=== PATIENT | female | born 1990 | race Caucasian/White ===

== ENCOUNTER 2023-04-18 11:55 | Outpatient (OUT) | payer OTHER, SELFPAY ==
[2023-04-18 12:28] LABS: Estimated Average Glucose 117 mg/dL; Glycohemoglobin A1C 5.7 % (4.5-6.2)
[2023-04-18 12:53] LABS: Thyroid Stimulating Hormone 0.762 uIU/mL (0.358-3.740)
[2023-04-18 13:21] LABS: Free T4 0.86 ng/dL (0.76-1.46)
== END 2023-04-18 11:56 | disposition home or self-care (01) ==
LOC: LAB 11:59
PROVIDERS: PCP Nurse Practitioner; Visit Provider Nurse Practitioner
DX: E78.1 Pure hyperglyceridemia (principal); E66.9 Obesity, unspecified
CPT/HCPCS: 36415; 83036; 83525; 84439; 84443

== ENCOUNTER 2023-07-08 20:59 | Outpatient (REF) | payer OTHER, SELFPAY ==
--- OUTSIDE RECORDS SUMMARY | 2023-07-08 21:11 | XMS_ITS | CCD ---
Author Name Unknown Address [address] [place] [address] Organization [facility] Care Team Providers Care Diving Fisher Name Role Phone ELA SHEFFIELDIKH H Admitting Unavailable FAWWAD, JOSEPH H Attending Unavailable ELA SHEFFIELDIKH H Consulting Unavailable AICHHOLZ, OMAIRA DELISA Admitting Unavailable AICHHOLZ, CEMET[employer] WORKERS SUPERVISOR DELISA Attending Unavailable AICHHOLZ, CEMETERY WORKERS SUPERVISOR DELISA Consulting Unavailable Kennedi Watt Primary Care Unavailable AICHHOLZ, DELISA Attending Unavailable Problems Active Problems Problem Classification Problem Date Documented Da te Episodic/Chronic Unclassified (3 sources) CONTACT W/AND (SUSP) EXPOS COVID-19; Translations: [CONTACT W/AND (SUSP) EXPOS COVID-19] Onset: 06-01-2022 Past or Other Problems Problem Classification Problem Date Documented Da te Episodic/Chronic Nonmalignant breast conditions (1 source) Nipple discharge; Translations: [NIPPLE DISCHARGE] Onset: 09-04-2021 Episodic Other screening for suspected conditions (not mental disorders or infectious disease) (4 sources) Encounter for screening for malignant neoplasm of cervix; Translations: [ENC SCREENING MALIG NEOPLASM CERV] Onset: 09-03-2021 Episodic Unclassified (1 source) CONTACT W/AND (SUSP) EXPOS COVID-19; Translations: [CONTACT W/AND (SUSP) EXPOS COVID-19] Onset: 05-30-2022 Results Test Name Value Interpretation Reference Range Facility Consent Formson 04-02-2023 Consent Forms [id number] Normal [facility] CMP Standardon 02-26-2023 eGFR Non AA >[address] [facility] Comment on above: Performed By: #### 1 [id number], 9055045, 8631659, 7530010, 0466118, [id number], 5460501 #### [facility] (DEFAULT) [address] [place] [address] 85077 eGFR AA >[address] [facility] Comment on above: Performed By: #### 1 [id number], 4920570, 1348956, 4115081, 7638660, 9145018916, 5277673 #### [facility] (DEFAULT) [address] [place] [address] 82983 Albumin [Mass/Vol] 4.0 g/dL Normal 3.5-5.0 [facility] Comment on above: Performed By: #### 1 [id number], 4770168, 7738115, 3978422, 1896765, 4878735057, 2588127 #### [facility] (DEFAULT) [address] [place] [address] Alk Phos 77 IU/L Normal 32-91 [facility] Comment on above: Performed By: #### 1 [id number], 5241981, 5251377, 1203791, 7354800, 7117564072, 1495115 #### [facility] (DEFAULT) [address] [place] [address] 42892 ALT [Catalytic activity/Vol] 20.0 U/L Normal 14.0-54.0 [facility] Comment on above: Performed By: #### 1 [id number], 7224820, 6056305, 5438597, 7259229, 2297094855, 8925051 #### [facility] (DEFAULT) [address] [place] [address] 72411 AST [Catalytic activity/Vol] 21 U/L Normal 15-41 [facility] Comment on above: Performed By: #### 1 [id number], 1955531, 2250539, 5069921, 5496810, 6930111825, 5706980 #### [facility] (DEFAULT) [address] [place] [address] 95920 Bili Total 0.8 mg/dL Normal 0.3-1.2 [facility] Comment on above: Performed By: #### 1 [id number], 0255077, 6050959, 3336455, 0691514, 8668953474, 4942964 #### [facility] (DEFAULT) [address] [place] [address] 99105 Calcium [Mass/Vol] 9.0 mg/dL Normal 8.9-10.3 [facility] Comment on above: Performed By: #### 1 [id number], 9017390, 1857267, 2563177, 7233663, 3387762667, 4497516 #### [facility] (DEFAULT) [address] [place] [address] 66828 Chloride [Moles/Vol] 103 mmol/L Normal 101-111 [facility] Comment on above: Performed By: #### 1 [id number], 9073673, 7806809, 5825700, 9589914, 9309345075, 3001104 #### [facility] (DEFAULT) [address] [place] [address] 03142 CO2 [Moles/Vol] 25 mmol/L Normal 21-32 [facility] Comment on above: Performed By: #### 1 099487563, 9875450, 2685466, 4514383, 5666305, 6098640994, 5528765 #### [facility] (DEFAULT) [address] [place] [address] 75002 Creatinine [Mass/Vol] 0.76 mg/dL Normal 0.60-1.30 [facility] Comment on above: Performed By: #### 1 [id number], 5960037, 3546815, 4722549, 8300007, 4729588691, 7609320 #### [facility] (DEFAULT) [address] [place] [address] 72597 Glucose [Mass/Vol] 83.0 mg/dL Normal 74.0-118.0 [facility] Comment on above: Performed By: #### 1 [id number], 6509088, 1253930, 5382905, 9751209, 0467320354, 8849921 #### [facility] (DEFAULT) [address] [place] [address] 85705 Potassium [Moles/Vol] 4.1 mmol/L Normal 3.6-5.1 [facility] Comment on above: Performed By: #### 1 200795985, 7783160, 2709827, 6207929, 0285809, 1388757586, 1504490 #### [facility] (DEFAULT) [address] [place] [address] 51088 Protein [Mass/Vol] 7.9 g/dL Normal 6.5-8.1 [facility] Comment on above: Performed By: #### 1 [id number], 5052148, 8691654, 3112328, 1855491, 1083378096, 0783637 #### [facility] (DEFAULT) [address] [place] [address] 40677 Sodium [Moles/Vol] 137.0 mmol/L Normal 136.0-144.0 [facility] Comment on above: Performed By: #### 1 215688363, 4905017, 3662846, 3004903, 5936308, 7596096562, 6668792 #### [facility] (DEFAULT) [address] [place] [address] 01292 Urea nitrogen [Mass/Vol] 13 mg/dL Normal 8-26 [facility] Comment on above: Performed By: #### 1 023797549, 3965949, 3861830, 2311219, 6271192, 1600653774, 3370676 #### [facility] (DEFAULT) [address] [place] [address] 17851 Albumin/Globulin [Mass ratio] 1.0 {ratio} Low 1.4-2.6 [facility] Comment on above: Performed By: #### 1 859750291, 2189300, 6133150, 7000868, 6220453, 4903570058, 8308052 #### [facility] (DEFAULT) [address] [place] [address] 67982 Anion gap [Moles/Vol] 13.1 mmol/L Normal 5.0-19.0 [facility] Comment on above: Performed By: #### 1 [id number], 9846240, 2531424, 3921555, 6810080, 0231691869, 1112522 #### [facility] (DEFAULT) [address] [place] [address] Globulin (S) [Mass/Vol] 3.9 g/dL Normal 1.5-4.3 [facility] Comment on above: Performed By: #### 1 581822179, 6480052, 0475558, 8634735, 2232277, 5344959870, 1412008 #### [facility] (DEFAULT) [address] [place] [address] Osmolality 273 mOsm/L Invalid Interpretation Code [facility] Comment on above: Performed By: #### 1 [id number], 3212950, 8815115, 0103476, 7947994, 8852284822, 8179317 #### [facility] (DEFAULT) [address] [place] [address] Urea nitrogen/Creatinine [Mass ratio] 17.1 mg/mg High 4.6-16.2 [facility] Comment on above: Performed By: #### 1 129838706, 0193337, 1850358, 8918138, 5249456, 4565419689, 2239575 #### [facility] (DEFAULT) [address] [place] [address] GGTon 02-26-2023 Gamma glutamyl transferase [Catalytic activity/Vol] 20.0 U/L Normal 7.0-50.0 [facility] Comment on above: Performed By: #### 1 [id number], 1564160, 0872925, 6639408, 6702833, 4279695712, 1594005 #### [facility] (DEFAULT) [address] [place] [address] Iron Levelon 02-26-2023 Iron [Mass/Vol] 130.0 ug/dL Normal 28.0-170.0 [facility] Comment on above: Performed By: #### 1 970037161, 1484101, 4022378, 4585544, 1022627, 5406866845, 5734916 #### [facility] (DEFAULT) [address] [place] [address] LDHon 02-26-2023 LDH 174.0 IU/L Normal 98.0-192.0 [facility] Comment on above: Performed By: #### 1 858291550, 9580572, 4487443, 3493700, 3459175, 0378891319, 1207774 #### [facility] (DEFAULT) [address] [place] [address] 55608 Lipid Panel Standardon 02-26 Cholesterol [Mass/Vol] 229.0 mg/dL High 66.0-200.0 [facility] Comment on above: Performed By: #### 1 521050191, 6844512, 1432896, 1882390, 7438265, 6605978658, 9907129 #### [facility] (DEFAULT) [address] [place] [address] 93801 Cholesterol in HDL [Mass/Vol] 50 mg/dL Normal 40-71 [facility] Comment on above: Performed By: #### 1 600974521, 9356203, 0588187, 9755688, 4177299, 6694909082, 8256895 #### [facility] (DEFAULT) [address] [place] [address] 22054 Triglyceride [Mass/Vol] 215.0 mg/dL High 0.0-150.0 [facility] Comment on above: Performed By: #### 1 825099625, 1670957, 7187466, 9468897, 9852037, 5213008526, 1834749 #### [facility] (DEFAULT) [address] [place] [address] 50870 Cholesterol in LDL [Mass/Vol] 136 mg/dL High 1-100 [facility] Comment on above: Performed By: #### 1 498628835, 2353857, 7111650, 0593857, 1011322, 8202178344, 0066560 #### [facility] (DEFAULT) [address] [place] [address] 78173 Cholesterol.total/Ch olesterol in HDL [Mass ratio] 4.5 {ratio} Normal 0.0-4.5 [facility] Comment on above: Performed By: #### 1 377407730, 7191103, 6091121, 7510071, 5686692, 4841061771, 2722715 #### [facility] (DEFAULT) [address] [place] [address] VLDL. 43 mg/dL High 5-40 [facility] Comment on above: Performed By: #### 1 326957129, 0027227, 1038258, 5673480, 1936404, 2673348369, 2152309 #### [facility] (DEFAULT) [address] [place] [address] Phoson 02-26-2023 Phosphate [Mass/Vol] 2.9 mg/dL Normal 2.5-4.6 [facility] Comment on above: Performed By: #### 1 042641064, 7971868, 9031767, 7462379, 1909912, 5682628570, 5733906 #### [facility] (DEFAULT) [address] [place] [address] Uric Acidon 02-26-2023 Urate [Mass/Vol] 6.0 mg/dL Normal 2.6-8.0 [facility] Comment on above: Performed By: #### 1 114035023, 4633078, 4517244, 7369605, 4935801, 7528050942, 0538929 #### [facility] (DEFAULT) [address] [place] [address] 58628 Covid-19 PCR (CVDTB)on SARS-CoV-2 (COVID-19) RNA ARIE+probe Ql (Unsp spec) Not detected Normal NOT DETECTED [facility] Comment on above: Result Comment: This test is not yet approved or cleared by the [place] FDA. When there are no FDA-approved or cleared tests available, and other criteria are met, FDA can make tests available under an emergency access mechanism called an Emergency Use Authorization (EUA). The EUA for this test is supported by the Battery Plate Assembler of Health and Human Service's (HHS's) declaration that circumstances exist to justify the emergency use of in vitro diagnostics for the detection and/or diagnosis of the virus that causes COVID-19. This EUA will remain in effect (meaning this test can be used) for the duration of the COVID-19 declaration justifying emergency of IVDs, unless it is terminated or revoked by FDA (after which the test may no longer be used). When diagnostic testing is negative, the possibility of a false negative should be considered in the context of a patient's recent exposures and the presence of clinical signs and symptoms consistent with SARS-CoV-2. Performed By: #### C VDTB #### [facility] [address] [place] [address] Dr. Jeffy Gonzalez INFLUENZA A AND B AGon 05-30 [facility] SEE BELOW Normal [facility] Comment on above: Result Comment: Nega tive for Flu A protein angiten. Infection due to Flu A cannot be ruled out. Flu A angiten in the sample may be below the detection limit of the test. Performed By: #### I NFLUAB #### [facility] [address] [place] [address] Dr. Jeffy Gonzalez [facility] SEE BELOW Normal [facility] Comment on above: Result Comment: Nega tive for Flu B protein antigen. Infection due to Flu B cannot be ruled out. Flu B antigen in the sample may be below the detection limit of the test. Performed By: #### I NFLUAB #### [facility] [address] [place] [address] Dr. Jeffy Gonzalez INFLUENZA A AG Negative Normal NEGATIVE SEE COMMENT [facility] Comment on above: Performed By: #### I NFLUAB #### [facility] [address] [place] [address] Dr. Jeffy Gonzalez INFLUENZA B AG Negative Normal NEGATIVE SEE COMMENT [facility] Comment on above: Performed By: #### I NFLUAB #### [facility] [address] [place] [address] Dr. Jeffy Gonzalez PAP ACOG PANEL 2: 22 to 30on 09-06-2021 . . Normal [facility] Comment on above: Performed By: #### 4 [id number] #### [facility] [address] [place] [address] Dr. Jeffy Gonzalez Age Gdln ACOG Testing 21-29 [facility] Comment on above: Performed By: #### 4 451296 #### [facility] [address] [place] [address] Dr. Jeffy Gonzalez DIAGNOSIS: Comment Normal [facility] Comment on above: Result Comment: NEGA TIVE FOR INTRAEPITHELIAL LESION OR MALIGNANCY. Performed By: #### 4 [id number] #### [facility] [address] [place] [address] Dr. Jeffy Gonzalez Methodology: Comment Normal [facility] Comment on above: Result Comment: This liquid based ThinPrep(R) pap test was screened with the use of an image guided system. Performed By: #### 4 [id number] #### [facility] [address] [place] [address] Dr. Jeffy Gonzalez Note: Comment Normal [facility] Comment on above: Result Comment: The Pap smear is a screening test designed to aid in the detection of premalignant and malignant conditions of the uterine cervix. It is not a diagnostic procedure and should not be used as the sole means of detecting cervical cancer. Both false-positive and false-negative reports do occur. . Performed By: #### 4 [id number] #### [facility] [address] [place] [address] Dr. Jeffy Gonzalez Performed by: Comment Normal [facility] Comment on above: Result Comment: Sofía Arellano, Pomologist (ASCP) Performed By: #### 4 665034 #### [facility] [address] [place] [address] Dr. Jeffy Gonzalez Reflex Criteria: Comment Normal [facility] Comment on above: Result Comment: The HPV DNA reflex criteria were not met with this specimen result therefore, no HPV testing was performed. . Performed By: #### 4 [id number] #### [facility] [address] [place] [address] Dr. Jeffy Gonzalez Specimen adequacy: Comment Normal [facility] Comment on above: Result Comment: Sati sfactory for evaluation. Endocervical and/or squamous metaplastic cells (endocervical component) are present. Performed By: #### 4 [id number] #### [facility] [address] [place] [address] Dr. Jeffy Gonzalez WOUND CULTUREon 09-06-2021 Aerobic Culture Final report Abnormal [facility] Comment on above: Performed By: #### C XWND #### [facility] [address] [place] [address] Dr. Jeffy Gonzalez Antimicrobial Susceptibility Comment Normal [facility] Comment on above: Result Comment: S = Susceptible; I = Intermediate; R = Resistant P = Positive; N = Negative MICS are expressed in micrograms per mL Antibiotic RSLT#1 RSLT#2 RSLT#3 RSLT#4 Ciprofloxacin S Clindamycin S Erythromycin S Gentamicin S Levofloxacin S Linezolid S Moxifloxacin S Oxacillin S Penicillin R Quinupristin/Dalfopristin S Rifampin S Tetracycline S Trimethoprim/Sulfa S Vancomycin S Performed By: #### C XWND #### [facility] [address] [place] [address] Dr. Jeffy Gonzalez Result 1 Comment Abnormal [facility] Comment on above: Result Comment: Stap hylococcus epidermidis Based on susceptibility to oxacillin this isolate would be susceptible to: *Penicillinase-stable penicillins, such as: Cloxacillin, Dicloxacillin, Nafcillin *Beta-lactam combination agents, such as: Amoxicillin-clavulanic acid, Ampicillin-sulbactam, Piperacillin-tazobactam *Oral cephems, such as: Cefaclor, Cefdinir, Cefpodoxime, Cefprozil, Cefuroxime, Cephalexin, Loracarbef *Parenteral cephems, such as: Cefazolin, Cefepime, Cefotaxime, Cefotetan, Ceftaroline, Ceftizoxime, Ceftriaxone, Cefuroxime *Carbapenems, such as: Doripenem, Ertapenem, Imipenem, Meropenem Moderate growth Performed By: #### C XWND #### [facility] [address] [place] [address] Dr. Jeffy Gnozalez Complete Blood Count with Au to Diffon 05-04-2021 Basophils (Bld) [#/Vol] 0.11 10*3/uL Normal 0.00-0.[address] [facility] Comment on above: Performed By: #### V ITD, CMP, LIPD, CBCAD #### [facility] [address] [place] [address] [id number] Basophils/100 WBC (Bld) 1.2 % Normal [facility] Lead Worker Of [employer] Comment on above: Performed By: #### V ITD, CMP, LIPD, CBCAD #### [facility] [address] [place], [place] [id number] Eosinophils (Bld) [#/Vol] 0.45 10*3/uL Normal 0.02-0.50 [facility] Lead Work[employer] Comment on above: Performed By: #### V ITD, CMP, LIPD, CBCAD #### [facility] [address] [place], [place] [id number] Eosinophils/100 WBC (Bld) 4.9 % Normal [facility] Specialist Comment on above: Performed By: #### V ITD, CMP, LIPD, CBCAD #### [facility] [address], [place] [id number] Erythrocyte distribution width (RBC) [Ratio] 12.1 % Normal 11.0-15.0 [facility] Lead Worker Of [employer] Comment on above: Performed By: #### V ITD, CMP, LIPD, CBCAD #### [facility] [address] [place], [place] [id number] Hematocrit (Bld) [Volume fraction] 44.1 % Normal 35.0-47.0 [facility] Lead Worker Of [employer] Comment on above: Performed By: #### V ITD, CMP, LIPD, CBCAD #### [facility] [address] [place], [place] [id number] Hemoglobin (Bld) [Mass/Vol] 14.9 g/dL Normal 11.6-15.5 [facility] Lead Worker [employer] Comment on above: Performed By: #### V ITD, CMP, LIPD, CBCAD #### [facility] [address], [place] [id number] Lymphocytes (Bld) [#/Vol] 2.5 10*3/uL Normal 0.9-3.9 [facility] Lead Work[employer] Comment on above: Performed By: #### V ITD, CMP, LIPD, CBCAD #### [facility] [address], [place] [id number] Lymphocytes/100 WBC (Bld) 27.0 % Normal [facility] Lead Worker [employer] Comment on above: Performed By: #### V ITD, CMP, LIPD, CBCAD #### [facility] [address], [place] [id number] MCH (RBC) [Entitic mass] 30.8 pg Normal 27.0-33.0 [facility] Specialist Comment on above: Performed By: #### V ITD, CMP, LIPD, CBCAD #### [facility] [address], [place] [id number] MCHC (RBC) [Mass/Vol] 33.8 g/dL Normal 32.0-36.0 [facility] Specialist Comment on above: Performed By: #### V ITD, CMP, LIPD, CBCAD #### [facility] [address], [place] [id number] MCV (RBC) [Entitic vol] 91 fL Normal 80-100 [facility] Specialist Comment on above: Performed By: #### V ITD, CMP, LIPD, CBCAD #### [facility] [address], [place] [id number] Monocytes (Bld) [#/Vol] 0.6 10*3/uL Normal 0.2-0.[address] [facility] Comment on above: Performed By: #### V ITD, CMP, LIPD, CBCAD #### [facility] [address], [place] [id number] Monocytes/100 WBC (Bld) 6.6 % Normal [facility] Comment on above: Performed By: #### V ITD, CMP, LIPD, CBCAD #### [facility] [address], [place] [id number] Neutrophils (Bld) [#/Vol] 5.5 10*3/uL Normal 1.5-7.8 [facility] Specialist Comment on above: Performed By: #### V ITD, CMP, LIPD, CBCAD #### [facility] [address], [place] [id number] Neutrophils/100 WBC (Bld) 59.4 % Normal [facility] Comment on above: Performed By: #### V ITD, CMP, LIPD, CBCAD #### [facility] [address], [place] [id number] Platelet mean volume (Bld) [Entitic vol] 10.00 fL Normal 7.50-12.50 [facility] Specialist Comment on above: Performed By: #### V ITD, CMP, LIPD, CBCAD #### [facility] [address], [place] [id number] Platelets (Bld) [#/Vol] 389 10*3/uL Normal 140-400 [facility] Lead Worker Of [employer] Comment on above: Performed By: #### V ITD, CMP, LIPD, CBCAD #### [facility] [address], [place] [id number] RBC (Bld) [#/Vol] 4.83 10*6/uL Normal 3.90-5.20 [facility] Lead Worker Of [employer] Comment on above: Performed By: #### V ITD, CMP, LIPD, CBCAD #### [facility] [address], [place] [id number] RDW-SD 40.4 fL Normal 37.0-50.0 [facility] Lead Worker Of [employer] Comment on above: Performed By: #### V ITD, CMP, LIPD, CBCAD #### [facility] [address], [place] [id number] WBC (Bld) [#/Vol] 9.2 10*3/uL Normal 3.8-11.0 [facility] Lead Worker Of [employer] Comment on above: Performed By: #### V ITD, CMP, LIPD, CBCAD #### [facility] [address], [place] [id number] [facility] 05-04-2021 Albumin [Mass/Vol] 4.9 g/dL Normal 3.6-5.1 [facility] Lead Worker Of [employer] Comment on above: Performed By: #### V ITD, CMP, LIPD, CBCAD #### [facility] [address], [place] [id number] Albumin/Globulin [Mass ratio] 1.8 {ratio} Normal 1.0-2.5 [facility] Lead Worker Of [employer] Comment on above: Performed By: #### V ITD, CMP, LIPD, CBCAD #### [facility] [address], [place] [id number] ALP [Catalytic activity/Vol] 89 U/L Normal 35-119 [facility] Lead Worker Of [employer] Comment on above: Performed By: #### V ITD, CMP, LIPD, CBCAD #### [facility] [address], [place] [id number] ALT [Catalytic activity/Vol] 22 U/L Normal 6-[address] [facility] Comment on above: Result Comment: 03/28 Female reference range changed. Performed By: #### V ITD, CMP, LIPD, CBCAD #### [facility] [address], [place] [id number] Anion gap [Moles/Vol] 18 mmol/L Normal 12-[address] [facility] Comment on above: Result Comment: Effe ctive 05/03/2019 reference range changed. Performed By: #### V ITD, CMP, LIPD, CBCAD #### [facility] [address], [place] [id number] AST [Catalytic activity/Vol] 15 U/L Normal 9-[address] [facility] Comment on above: Performed By: #### V ITD, CMP, LIPD, CBCAD #### [facility] [address], [place] [id number] Bilirubin [Mass/Vol] 0.56 mg/dL Normal 0.30-1.20 [facility] Comment on above: Performed By: #### V ITD, CMP, LIPD, CBCAD #### [facility] [address], [place] [id number] BUN/CREA 16 Ratio Normal 6-[address] [facility] Comment on above: Performed By: #### V ITD, CMP, LIPD, CBCAD #### [facility] [address], [place] [id number] Calcium [Mass/Vol] 10.4 mg/dL High 8.6-10.2 [facility] Comment on above: Performed By: #### V ITD, CMP, LIPD, CBCAD #### [facility] [address], [place] [id number] Chloride [Moles/Vol] 104 mmol/L Normal 98-107 [facility] Comment on above: Performed By: #### V ITD, CMP, LIPD, CBCAD #### [facility] [address], [place] [id number] CO2 [Moles/Vol] 22 mmol/L Normal 20-[address] [facility] Comment on above: Performed By: #### V ITD, CMP, LIPD, CBCAD #### [facility] [address], [place] [id number] Creatinine [Mass/Vol] 0.6 mg/dL Normal 0.6-1.[address] [facility] Comment on above: Performed By: #### V ITD, CMP, LIPD, CBCAD #### [facility] [address], [place] [id number] eGFRAA 138 mL/min/1.73m2 Normal >60 [facility] [facility] Comment on above: Performed By: #### V ITD, CMP, LIPD, CBCAD #### [facility] [address], [place] [id number] eGFRNAA 114 mL/min/1.73m2 Normal >60 [facility] Comment on above: Performed By: #### V ITD, CMP, LIPD, CBCAD #### [facility] [address], [place] [id number] Globulin (S) [Mass/Vol] 2.8 g/dL Normal 1.9-3.[address] [facility] Comment on above: Performed By: #### V ITD, CMP, LIPD, CBCAD #### [facility] [address], [place] [id number] Glucose [Mass/Vol] 76 mg/dL Normal 65-99 [facility] Comment on above: Result Comment: For FASTING Glucose --- ADA reference ranges: Normal 65-99 mg/dl Prediabetes 100-125 Diabetes >/= 126 Performed By: #### V ITD, CMP, LIPD, CBCAD #### [facility] [address], [place] [id number] Potassium [Moles/Vol] 4.5 mmol/L Normal 3.5-5.5 [facility] Specialist Comment on above: Performed By: #### V ITD, CMP, LIPD, CBCAD #### [facility] [address], [place] [id number] Protein [Mass/Vol] 7.7 g/dL Normal 6.1-8.1 [facility] Lead Worker Of [employer] Comment on above: Performed By: #### V ITD, CMP, LIPD, CBCAD #### [facility] [address], [place] [id number] Sodium [Moles/Vol] 139 mmol/L Normal 135-146 [facility] Lead Worker [employer] Comment on above: Performed By: #### V ITD, CMP, LIPD, CBCAD #### [facility] [address], [place] [id number] Urea nitrogen [Mass/Vol] 10 mg/dL Normal 7-25 [facility] Lead Worker Of [employer] Comment on above: Performed By: #### V ITD, CMP, LIPD, CBCAD #### [facility] [address], [place] [id number] Lipid Panelon 05-04-2021 Cholesterol [Mass/Vol] 253 mg/dL High 125-200 [facility] Specialist Comment on above: Result Comment: Low risk < 200mg/dL Borderline risk 201-239 mg/dl High risk > or equal to 240 Performed By: #### V ITD, CMP, LIPD, CBCAD #### [facility] [address], [place] [id number] Cholesterol in HDL [Mass/Vol] 57 mg/dL Normal >40 [facility] Lead Worker [employer] Comment on above: Result Comment: High Cardiovascular Risk HDL <40 mg/dL Low Cardiovascular Risk HDL > or equal to 60 mg/dl Performed By: #### V ITD, CMP, LIPD, CBCAD #### [facility] [address], [place] [id number] Cholesterol in LDL [Mass/Vol] 171 mg/dL Normal [facility] Lead Worker Of [employer] Comment on above: Result Comment: LDL ATP III CLASSIFICATION LDL less than 100 mg/dl Optimal LDL 100-129 mg/dl Near or above optimal LDL 130-159 Borderline high LDL 160-189 High LDL greater than 189 mg/dl Very High Performed By: #### V ITD, CMP, LIPD, CBCAD #### [facility] [address], [place] [id number] Cholesterol in VLDL [Mass/Vol] 25 mg/dL Normal [facility] Lead Worker [employer] Comment on above: Performed By: #### V ITD, CMP, LIPD, CBCAD #### [facility] [address], [place] [id number] Cholesterol.total/Ch olesterol in HDL [Mass ratio] 4 {ratio} Normal [facility] Comment on above: Performed By: #### V ITD, CMP, LIPD, CBCAD #### [facility] [address] [place] [id number] Triglyceride [Mass/Vol] 127 mg/dL Normal 30-150 [facility] Specialist Comment on above: Result Comment: TRIG ATPIII CLASSIFICATIONS TRIG less than 150 mg/dl Normal TRIG 150-199 mg/dl Borderline High TRIG 200-500 mg/dl High TRIG greather than 500 mg/dl Very High Performed By: #### V ITD, CMP, LIPD, CBCAD #### [facility] [address], [place] [id number] Q - CELIAC DISEASE COMP PANE [place] 05-04-2021 IMMUNOGLOBULIN A 133 mg/dL Normal 47-310 [facility] Specialist Comment on above: Order Comment: [facility] performed at: [facility], [address] [facility], [address] [place] [address], [phone], Painter Mirror: Alfie Hardin MD [facility] Date/Time: [facility] Results Received Date/Time: [facility] Reported Date/Time: Performed By: #### [id number] #### [facility] [address] [place] [address] INTERPRETATION SEE NOTE Normal [facility] Specialist Comment on above: Order Comment: [facility] performed at: [facility], [address] , [address] [place] [address], [phone], Painter Mirror: Alfie Hardin MD [facility] Date/Time: [facility] Results Received Date/Time: [facility] Reported Date/Time: Result Comment: No s erological evidence for celiac disease is present. tTg may normalize in individuals with celiac disease who maintain a gluten free diet. If high suspicion of celiac disease, consider HLA DQ2 and DQ8 testing to rule out celiac disease. Performed By: #### [id number] #### [facility] [address] [place] [address] TISSUE TRANSGLUTAMINASE AB, IGA <1.0 Normal [facility] Lead Worker Of [employer] Comment on above: Order Comment: [facility] performed at: [facility], [address], [address] [facility], [place], [address], Painter Mirror: Alfie Hardin MD [facility] Date/Time: [facility] Results Received Date/Time: [facility] Reported Date/Time: Result Comment: Valu e Interpretation ----- <15.0 Antibody not detected > or = 15.0 Antibody detected Performed By: #### [id number] #### [facility] [address] [place] [address] Vitamin D 25-OHon 05-04-2021 VIT D 25 OH 22 ng/ml Low >29 [facility] Lead Worker Of [employer] Comment on above: Result Comment: Viviane min D Status Deficiency <20 ng/mL Insufficiency 20-29 ng/mL Optimal 30-100 ng/mL Possible Toxicity >=150 ng/mL Performed By: #### V ITD, CMP, LIPD, CBCAD #### [facility] [address] [place], [place] [id number] Encounters Encounter Date Encounter Type Care Provider Facility Start: 04-23-2023 End: 04-23-2023 ambulatory DELISA PHILLIPS Not Available Start: 02-25-2023 End: 02-26-2023 ambulatory Kennedi Zapien Shukri Facility[facility] Start: 05-30-2022 End: 05-30-2022 ambulatory SHAIKH Shayan SHEFFIELD Facility:[facility] Start: 09-03-2021 End: 09-03-2021 ambulatory OMAIRA PHILLIPS Facility:[facility] Payers Date Payer Category Payer Unknown [id number] [id number] 1991 Unknown [id number] 1991 Unknown [id number] 1959 Unknown [id number] Summary Purpose Family History No Family History Records FoundNo Family History Records FoundNo Family History Records FoundNo Family History Records Found Advance Directives No Advanced Directives Records FoundNo Advanced Directives Records FoundNo Advanced Directives Records FoundNo Advanced Directives Records Found Additional Source Comments INFORMATION SOURCE (unrecogn ized section and content) DATE CREATED AUTHOR 05/11/2021 [facility] dical Specialist DATE CREATED AUTHOR AUTHOR'S ORGANIZ ATION 06/01/2022 [facility] DATE CREATED AUTHOR AUTHOR'S ORGANIZ ATION 04/04/2023 [facility] l DATE CREATED AUTHOR AUTHOR'S ORGANIZ ATION 04/24/2023 [facility] dical Specialists [facility] FOR RECORDS PERTAINING TO PATIENTS WHO ARE OR HAVE BEEN ENROLLED IN A CHEMICAL DEPENDENCY/SUBSTANCEABUSE PROGRAM, SOME INFORMATION MAY BE OMITTED. This clinical summary was aggregated from multiple sources. Caution should be exercised in using it in the provision of clinical care. This summary normalizes information from multiple sources, and as a consequence, information in this document may materially change the coding, format and clinical context of patient data. In addition, data may be omitted in some cases. CLINICAL DECISIONS SHOULD BE BASED ON THE PRIMARY CLINICAL RECORDS. [facility] [employer] [facility]. provides no warranty or guarantee of the accuracy or completeness of information in this document.
[2023-07-13 07:10] LABS: Age Gdln ACOG Testing Note (.); HPV Aptima Negative (Negative); IGP, Aptima HPV, rfx 16/18,45 Note (.)
== END 2023-07-08 21:00 | disposition home or self-care (01) ==
LOC: LAB 20:59
PROVIDERS: PCP Nurse Practitioner; Visit Provider Physician Assistant
DX: Z01.419 Encounter for gynecological examination (general) (routine) without abnormal findings (principal)
CPT/HCPCS: 87624; G0145

== ENCOUNTER 2023-08-21 10:04 | Outpatient (OUT) | payer OTHER, SELFPAY ==
--- OUTSIDE RECORDS SUMMARY | 2023-08-21 10:26 | XMS_ITS | CCD ---
Author Organization [facility] Care Team Providers Care Lard Refiner Name Role Phone SHAIKH Shayan SHEFFIELD Admitting Unavailable FAWWAJaye, H Attending Unavailable FAWWAJaye, JOSEPH H Consulting Unavailable AICHHOLZ, CUSTOMER EXPERIENCE RETAIL CLERK DELISA Admitting Unavailable AICHHOLZ, CUSTOMER EXPERIENCE RETAIL CLERK DELISA Attending Unavailable AICHHOLZ, CUSTOMER EXPERIENCE RETAIL CLERK DELISA Consulting Unavailable Kennedi Watt Primary Care Unavailable AICHHOLZ, DELISA Attending Unavailable AICHHOLZ, DELISA Attending Unavailable FRANCIE GOMEZ Attending Unavailable ADORE, INOCENCIA Attending Unavailable Problems Active Problems Problem Classification [...] Range Facility Consent Formson 04-02-2023 Consent Forms [id number] #[id number] Normal [facility] CMP Standardon 02-26-2023 eGFR Non AA >60 Invalid Interpretation Code [facility] Comment on above: Performed By: #### 1 [id number], 8079961, 7645739, 6849949, 5461502, [id number], 6275278 #### [facility] (DEFAULT) [address] [place] [address] 50282 eGFR AA >60 Invalid Interpretation Code [facility] Comment on above: Performed By: #### 1 [id number], 7158304, 5346188, 7515117, 4261613, 5082110065, 6257920 #### [facility] (DEFAULT) [address] [place] [address] 69390 Albumin [Mass/Vol] 4.0 g/dL Normal 3.5-5.0 [facility] Comment on above: Performed By: #### 1 [id number], 5885655, 7939909, 4325637, 1952833, 2212693355, 3433541 #### [facility] (DEFAULT) [address] [place] [address] Alk Phos 77 IU/L Normal 32-91 [facility] Comment on above: Performed By: #### 1 [id number], 8158175, 5364599, 5530620, 3384594, 9340114920, 2899718 #### [facility] (DEFAULT) [address] [place] [address] 73133 ALT [Catalytic activity/Vol] 20.0 U/L Normal 14.0-54.0 [facility] Comment on above: Performed By: #### 1 [id number], 9596710, 2433371, 8807553, 8488554, 2220816043, 9554082 #### [facility] (DEFAULT) [address] [place] [address] 26341 AST [Catalytic activity/Vol] 21 U/L Normal 15-41 [facility] Comment on above: Performed By: #### 1 825575702, 6892700, 3609672, 2992036, 9568487, 8329876140, 1184887 #### [facility] (DEFAULT) [address] [place] [address] 28286 Bili Total 0.8 mg/dL Normal 0.3-1.2 [facility] Comment on above: Performed By: #### 1 881578088, 0401979, 0237196, 3338872, 4607658, 1062180776, 8337439 #### [facility] (DEFAULT) [address] [place] [address] 93072 Calcium [Mass/Vol] 9.0 mg/dL Normal 8.9-10.3 [facility] Comment on above: Performed By: #### 1 [id number], 8462893, 6713239, 9876149, 5471737, 7373274609, 1879701 #### [facility] (DEFAULT) [address] [place] [address] 75984 Chloride [Moles/Vol] 103 mmol/L Normal 101-111 [facility] Comment on above: Performed By: #### 1 308572460, 4361736, 7218905, 0469829, 7555999, 4984332405, 4020425 #### [facility] (DEFAULT) [address] [place] [address] 13735 CO2 [Moles/Vol] 25 mmol/L Normal 21-32 [facility] Comment on above: Performed By: #### 1 762172886, 8034584, 0490667, 0931016, 6705014, 3801844448, 1939114 #### [facility] (DEFAULT) [address] [place] [address] 54457 Creatinine [Mass/Vol] 0.76 mg/dL Normal 0.60-1.30 [facility] Comment on above: Performed By: #### 1 503532526, 1427137, 9122526, 2632179, 4754074, 8053500811, 7912327 #### [facility] (DEFAULT) [address] [place] [address] 64201 Glucose [Mass/Vol] 83.0 mg/dL Normal 74.0-118.0 [facility] Comment on above: Performed By: #### 1 559974381, 5487300, 7065363, 8176613, 3013581, 6862216238, 6881923 #### [facility] (DEFAULT) [address] [place] [address] 09497 Potassium [Moles/Vol] 4.1 mmol/L Normal 3.6-5.1 [facility] Comment on above: Performed By: #### 1 736977725, 6066784, 1349722, 1596024, 5670434, 7888030864, 3069987 #### [facility] (DEFAULT) [address] [place] [address] 38579 Protein [Mass/Vol] 7.9 g/dL Normal 6.5-8.1 [facility] Comment on above: Performed By: #### 1 324141030, 9798848, 5447033, 2005077, 5176209, 6142959267, 0390143 #### [facility] (DEFAULT) [address] [place] [address] 53624 Sodium [Moles/Vol] 137.0 mmol/L Normal 136.0-144.0 [facility] Comment on above: Performed By: #### 1 812757581, 3079069, 6842915, 2428470, 8870433, 7026536232, 9304492 #### [facility] (DEFAULT) [address] [place] [address] 62312 Urea nitrogen [Mass/Vol] 13 mg/dL Normal 8-26 [facility] Comment on above: Performed By: #### 1 862250283, 4359305, 3433157, 8714379, 5708863, 8958857363, 0462346 #### [facility] (DEFAULT) [address] [place] [address] 94433 Albumin/Globulin [Mass ratio] 1.0 {ratio} Low 1.4-2.6 [facility] Comment on above: Performed By: #### 1 938698039, 2283583, 7442904, 0082908, 6732839, 1602317372, 5533003 #### [facility] (DEFAULT) [address] [place] [address] 58499 Anion gap [Moles/Vol] 13.1 mmol/L Normal 5.0-19.0 [facility] Comment on above: Performed By: #### 1 768794791, 0581199, 0934435, 6542067, 9280647, 4018362405, 8026291 #### [facility] (DEFAULT) [address] [place] [address] Globulin (S) [Mass/Vol] 3.9 g/dL Normal 1.5-4.3 [facility] Comment on above: Performed By: #### 1 599359545, 5558823, 5645200, 3417251, 5577395, 3935027255, 5541581 #### [facility] (DEFAULT) [address] [place] [address] Osmolality 273 mOsm/L Invalid Interpretation Code [facility] Comment on above: Performed By: #### 1 421685364, 6761203, 8353670, 9134395, 1744024, 8202581936, 3302018 #### [facility] (DEFAULT) [address] [place] [address] Urea nitrogen/Creatinine [Mass ratio] 17.1 mg/mg High 4.6-16.2 [facility] Comment on above: Performed By: #### 1 236947181, 9156031, 4983632, 1059855, 4840692, 5138479262, 5081384 #### [facility] (DEFAULT) [address] [place] [address] GGTon 02-26-2023 Gamma glutamyl transferase [Catalytic activity/Vol] 20.0 U/L Normal 7.0-50.0 [facility] Comment on above: Performed By: #### 1 278762456, 7902890, 3612821, 8072299, 5980235, 6513869662, 1778172 #### [facility] (DEFAULT) [address] [place] [address] Iron Levelon 02-26-2023 Iron [Mass/Vol] 130.0 ug/dL Normal 28.0-170.0 [facility] Comment on above: Performed By: #### 1 [id number], 7261632, 7758053, 4410450, 2296729, 3751346865, 9524117 #### [facility] (DEFAULT) [address] [place] [address] LDHon 02-26-2023 LDH 174.0 IU/L Normal 98.0-192.0 [facility] Comment on above: Performed By: #### 1 721703900, 8047565, 8059710, 1907112, 8835729, 8344777874, 2807102 #### [facility] (DEFAULT) [address] [place] [address] 86955 Lipid Panel Standardon 02-26 Cholesterol [Mass/Vol] 229.0 mg/dL High 66.0-200.0 [facility] Comment on above: Performed By: #### 1 866439536, 2320587, 8519025, 3851555, 2276548, 6533612808, 7870117 #### [facility] (DEFAULT) [address] [place] [address] 14207 Cholesterol in HDL [Mass/Vol] 50 mg/dL Normal 40-71 [facility] Comment on above: Performed By: #### 1 018988619, 8541671, 8326129, 6577214, 7576605, 8384166700, 3048152 #### [facility] (DEFAULT) [address] [place] [address] 07550 Triglyceride [Mass/Vol] 215.0 mg/dL High 0.0-150.0 [facility] Comment on above: Performed By: #### 1 289769927, 4425898, 3228660, 6272440, 1268265, 5188954960, 4109075 #### [facility] (DEFAULT) [address] [place] [address] 26707 Cholesterol in LDL [Mass/Vol] 136 mg/dL High 1-100 [facility] Comment on above: Performed By: #### 1 634059143, 2465750, 4836244, 9332822, 3054565, 7087939863, 1833128 #### [facility] (DEFAULT) [address] [place] [address] 06765 Cholesterol.total/Ch olesterol in HDL [Mass ratio] 4.5 {ratio} Normal 0.0-4.5 [facility] Comment on above: Performed By: #### 1 656680384, 5847678, 6773811, 6320706, 6636537, 2147785244, 2986745 #### [facility] (DEFAULT) [address] [place] [address] VLDL. 43 mg/dL High 5-40 [facility] Comment on above: Performed By: #### 1 707006000, 1966983, 6884004, 6447963, 7150930, 6359695441, 5977357 #### [facility] (DEFAULT) [address] [place] [address] Phoson 02-26-2023 Phosphate [Mass/Vol] 2.9 mg/dL Normal 2.5-4.6 [facility] Comment on above: Performed By: #### 1 702059653, 4583847, 8150663, 2198919, 2808268, 4737257836, 7568926 #### [facility] (DEFAULT) [address] [place] [address] Uric Acidon 02-26-2023 Urate [Mass/Vol] 6.0 mg/dL Normal 2.6-8.0 [facility] Comment on above: Performed By: #### 1 340337959, 9119510, 9913361, 5223751, 9917101, 3957410515, 2533628 #### [facility] (DEFAULT) [address] [place] [address] 98955 Covid-19 PCR (CVDTB)on SARS-CoV-2 (COVID-19) RNA ARIE+probe Ql (Unsp spec) Not detected Normal NOT DETECTED [facility] Comment on above: Result Comment: This test is not yet approved or cleared by the [place] FDA. When there are no FDA-approved or cleared tests available, and other criteria are met, FDA can make tests available under an emergency access mechanism called an Emergency Use Authorization (EUA). The EUA for this test is supported by the [place] of Health and Human Service's (HHS's) declaration [...] SARS-CoV-2. Performed By: #### C VDTB #### [facility] [address] [place] [address] Dr. Jeffy Gonzalez INFLUENZA A AND B AGon 05-30 [facility] SEE BELOW Normal [facility] Comment on above: Result Comment: Nega tive for Flu A protein angiten. Infection due to Flu A cannot be ruled out. Flu A angiten in the sample may be below the detection limit of the test. Performed By: #### I NFLUAB #### [facility] [address] [place] [address] Dr. Jeffy Gonzalez [facility] SEE BELOW Normal [facility] Comment on above: Result Comment: Nega tive for Flu B protein antigen. Infection due to Flu B cannot be ruled out. Flu B antigen in the sample may be below the detection limit of the test. Performed By: #### I NFLUAB #### [facility] [address] [place] [address] Dr. Jeffy Gonzalez INFLUENZA A AG Negative Normal NEGATIVE SEE COMMENT [facility] Comment on above: Performed By: #### I NFLUAB #### [facility] [address] [place] [address] Dr. Jeffy Gonzalez INFLUENZA B AG Negative Normal NEGATIVE SEE COMMENT [facility] Comment on above: Performed By: #### I NFLUAB #### [facility] [address] [place] [address] Dr. Jeffy Gonzalez PAP ACOG PANEL 2: 22 to 30on 09-06-2021 . . Normal [facility] Comment on above: Performed By: #### 4 [id number] #### [facility] [address] [place] [address] Dr. Jeffy Gonzalez Age Gdln ACOG Testing - [facility] Comment on above: Performed By: #### 4 [id number] #### [facility] [address] [place] [address] Dr. Jeffy Gonzalez DIAGNOSIS: Comment Normal [facility] Comment on above: Result Comment: NEGA TIVE FOR INTRAEPITHELIAL LESION OR MALIGNANCY. Performed By: #### 4 [id number] #### [facility] [address] [place] [address] Dr. Jeffy Gonzalez Methodology: Comment Normal [facility] Comment on above: Result Comment: This liquid based ThinPrep(R) pap test was screened with the use of an image guided system. Performed By: #### 4 [id number] #### [facility] [address] [place] [address] Dr. Jeffy Gonzalez Note: Comment Normal [facility] Comment on above: Result Comment: The Pap smear is a screening test designed to aid in the detection of premalignant and malignant conditions of the uterine cervix. It is not a diagnostic procedure and should not be used as the sole means of detecting cervical cancer. Both false-positive and false-negative reports do occur. . Performed By: #### 4 [id number] #### [facility] [address] [place] [address] Dr. Jeffy Gonzalez Performed by: Comment Normal [facility] Comment on above: Result Comment: Sofía Arellano, Stitchdowns Toe Former (ASCP) Performed By: #### 4 [id number] #### [facility] [address] [place] [address] Dr. Jeffy Gonzalez Reflex Criteria: Comment Normal [facility] Comment on above: Result Comment: The HPV DNA reflex criteria were not met with this specimen result therefore, no HPV testing was performed. . Performed By: #### 4 [id number] #### [facility] [address] [place] [address] Dr. Jeffy Gonzalez Specimen adequacy: Comment Normal [facility] Comment on above: Result Comment: Sati sfactory for evaluation. Endocervical and/or squamous metaplastic cells (endocervical component) are present. Performed By: #### 4 [id number] #### [facility] [address] [place] [address] Dr. Jeffy Gonzalez WOUND CULTUREon 09-06-2021 Aerobic Culture Final report Abnormal [facility] Comment on above: Performed By: #### C XWND #### [facility] [address] [address] [address] Jeffy Gonzalez Antimicrobial Susceptibility Comment Normal [facility] Comment on above: Result Comment: [...] S Performed By: #### C XWND #### [facility] [address] [place] [address] Dr. Jeffy Gonzalez Result 1 Comment Abnormal [facility] Comment on above: Result Comment: Stap [...] growth Performed By: #### C XWND #### [facility] [address] [place] [address] Dr. Jeffy Gonzalez Complete Blood Count with Au to Diffon 05-04-2021 Basophils (Bld) [#/Vol] 0.11 10*3/uL Normal 0.00-0.20 [facility] [employer] Comment on above: Performed By: #### V ITD, CMP, LIPD, CBCAD #### [facility] [address] [place] [id number] Basophils/100 WBC (Bld) 1.2 % Normal [facility] Comment on above: Performed By: #### V ITD, CMP, LIPD, CBCAD #### [facility] [address], [place] [id number] Eosinophils (Bld) [#/Vol] 0.45 10*3/uL Normal 0.02-0.50 [facility] [employer] Comment on above: Performed By: #### V ITD, CMP, LIPD, CBCAD #### [facility] [address], [place] [id number] Eosinophils/100 WBC (Bld) 4.9 % Normal [facility] Comment on above: Performed By: #### V ITD, CMP, LIPD, CBCAD #### [facility] [address], [place] [id number] Erythrocyte distribution width (RBC) [Ratio] 12.1 % Normal 11.0-15.0 [facility] [employer] Comment on above: Performed By: #### V ITD, CMP, LIPD, CBCAD #### [facility] [address], [place] [id number] Hematocrit (Bld) [Volume fraction] 44.1 % Normal 35.0-47.0 [facility] [employer] Comment on above: Performed By: #### V ITD, CMP, LIPD, CBCAD #### [facility] [address], [place] [id number] Hemoglobin (Bld) [Mass/Vol] 14.9 g/dL Normal 11.6-15.5 [facility] [employer] Comment on above: Performed By: #### V ITD, CMP, LIPD, CBCAD #### [facility] [address], [place] [id number] Lymphocytes (Bld) [#/Vol] 2.5 10*3/uL Normal 0.9-3.9 [facility] [employer] Comment on above: Performed By: #### V ITD, CMP, LIPD, CBCAD #### [facility] [address], [place] [id number] Lymphocytes/100 WBC (Bld) 27.0 % Normal [facility] Comment on above: Performed By: #### V ITD, CMP, LIPD, CBCAD #### [facility] [address], [place] [id number] MCH (RBC) [Entitic mass] 30.8 pg Normal 27.0-33.0 [facility] Comment on above: Performed By: #### V ITD, CMP, LIPD, CBCAD #### [facility] [address], [place] [id number] MCHC (RBC) [Mass/Vol] 33.8 g/dL Normal 32.0-36.0 [facility] Comment on above: Performed By: #### V ITD, CMP, LIPD, CBCAD #### [facility] [address], [place] [id number] MCV (RBC) [Entitic vol] 91 fL Normal 80-100 [facility] Comment on above: Performed By: #### V ITD, CMP, LIPD, CBCAD #### [facility] [address], [place] [id number] Monocytes (Bld) [#/Vol] 0.6 10*3/uL Normal 0.2-0.9 [facility] Comment on above: Performed By: #### V ITD, CMP, LIPD, CBCAD #### [facility] [address], [place] [id number] Monocytes/100 WBC (Bld) 6.6 % Normal [facility] Comment on above: Performed By: #### V ITD, CMP, LIPD, CBCAD #### [facility] [address], [place] [id number] Neutrophils (Bld) [#/Vol] 5.5 10*3/uL Normal 1.5-7.8 [facility] Comment on above: Performed By: #### V ITD, CMP, LIPD, CBCAD #### [facility] [address], [place] [id number] Neutrophils/100 WBC (Bld) 59.4 % Normal [facility] Comment on above: Performed By: #### V ITD, CMP, LIPD, CBCAD #### [facility] [address], [place] [id number] Platelet mean volume (Bld) [Entitic vol] 10.00 fL Normal 7.50-12.50 [facility] Comment on above: Performed By: #### V ITD, CMP, LIPD, CBCAD #### [facility] [address], [place] [id number] Platelets (Bld) [#/Vol] 389 10*3/uL Normal 140-400 [facility] [employer] Comment on above: Performed By: #### V ITD, CMP, LIPD, CBCAD #### [facility] [address], [place] [id number] RBC (Bld) [#/Vol] 4.83 10*6/uL Normal 3.90-5.20 [facility] [employer] Comment on above: Performed By: #### V ITD, CMP, LIPD, CBCAD #### [facility] [address], [place] [id number] RDW-SD 40.4 fL Normal 37.0-50.0 [facility] Comment on above: Performed By: #### V ITD, CMP, LIPD, CBCAD #### [facility] [address], [place] [id number] WBC (Bld) [#/Vol] 9.2 10*3/uL Normal 3.8-11.0 [facility] [employer] Comment on above: Performed By: #### V ITD, CMP, LIPD, CBCAD #### [facility] [address], [place] [id number] Comprehensive Metabolic [facility] 05-04-2021 Albumin [Mass/Vol] 4.9 g/dL Normal 3.6-5.1 [facility] [employer] Comment on above: Performed By: #### V ITD, CMP, LIPD, CBCAD #### [facility] [address], [place] [id number] Albumin/Globulin [Mass ratio] 1.8 {ratio} Normal 1.0-2.5 [facility] [employer] Comment on above: Performed By: #### V ITD, CMP, LIPD, CBCAD #### [facility] [address], [place] [id number] ALP [Catalytic activity/Vol] 89 U/L Normal 35-119 [facility] [employer] Comment on above: Performed By: #### V ITD, CMP, LIPD, CBCAD #### [facility] [address], [place] [id number] ALT [Catalytic activity/Vol] 22 U/L Normal 6-33 [facility] Comment on above: Result Comment: 03/28 Female reference range changed. Performed By: #### V ITD, CMP, LIPD, CBCAD #### [facility] [address], [place] [id number] Anion gap [Moles/Vol] 18 mmol/L Normal 12-20 [facility] Comment on above: Result Comment: Effe ctive 05/03/2019 reference range changed. Performed By: #### V ITD, CMP, LIPD, CBCAD #### [facility] [address], [place] [id number] AST [Catalytic activity/Vol] 15 U/L Normal 9-34 [facility] Comment on above: Performed By: #### V ITD, CMP, LIPD, CBCAD #### [facility] [address], [place] [id number] Bilirubin [Mass/Vol] 0.56 mg/dL Normal 0.30-1.20 [facility] Comment on above: Performed By: #### V ITD, CMP, LIPD, CBCAD #### [facility] [address], [place] [id number] BUN/CREA 16 Ratio Normal 6-22 [facility] Comment on above: Performed By: #### V ITD, CMP, LIPD, CBCAD #### [facility] [address], [place] [id number] Calcium [Mass/Vol] 10.4 mg/dL High 8.6-10.2 [facility] Comment on above: Performed By: #### V ITD, CMP, LIPD, CBCAD #### [facility] [address], [place] [id number] Chloride [Moles/Vol] 104 mmol/L Normal 98-107 [facility] Comment on above: Performed By: #### V ITD, CMP, LIPD, CBCAD #### [facility] [address], [place] [id number] CO2 [Moles/Vol] 22 mmol/L Normal 20-31 [facility] Comment on above: Performed By: #### V ITD, CMP, LIPD, CBCAD #### [facility] [address], [place] [id number] Creatinine [Mass/Vol] 0.6 mg/dL Normal 0.6-1.4 [facility] Comment on above: Performed By: #### V ITD, CMP, LIPD, CBCAD #### [facility] [address], [place] [id number] eGFRAA 138 mL/min/1.73m2 Normal >60 [facility] Comment on above: Performed By: #### V ITD, CMP, LIPD, CBCAD #### [facility] [address], [place] [id number] eGFRNAA 114 mL/min/1.73m2 Normal >60 [facility] Comment on above: Performed By: #### V ITD, CMP, LIPD, CBCAD #### [facility] [address], [place] [id number] Globulin (S) [Mass/Vol] 2.8 g/dL Normal 1.9-3.7 [facility] Comment on above: Performed By: #### V ITD, CMP, LIPD, CBCAD #### [facility] [address], [place] [id number] Glucose [Mass/Vol] 76 mg/dL Normal 65-99 [facility] Comment on above: Result Comment: For FASTING Glucose --- ADA reference ranges: Normal 65-99 mg/dl Prediabetes 100-125 Diabetes >/= 126 Performed By: #### V ITD, CMP, LIPD, CBCAD #### [facility] [address], [place] [id number] Potassium [Moles/Vol] 4.5 mmol/L Normal 3.5-5.5 [facility] Comment on above: Performed By: #### V ITD, CMP, LIPD, CBCAD #### [facility] [address], [place] [id number] Protein [Mass/Vol] 7.7 g/dL Normal 6.1-8.1 [facility] [employer] Comment on above: Performed By: #### V ITD, CMP, LIPD, CBCAD #### [facility] [address], [place] [id number] Sodium [Moles/Vol] 139 mmol/L Normal 135-146 [facility] [employer] Comment on above: Performed By: #### V ITD, CMP, LIPD, CBCAD #### [facility] [address], [place] [id number] Urea nitrogen [Mass/Vol] 10 mg/dL Normal 7-25 [facility] [employer] Comment on above: Performed By: #### V ITD, CMP, LIPD, CBCAD #### [facility] [address], [place] [id number] Lipid Panelon 05-04-2021 Cholesterol [Mass/Vol] 253 mg/dL High 125-200 [facility] Comment on above: Result Comment: Low risk < 200mg/dL Borderline risk 201-239 mg/dl High risk > or equal to 240 Performed By: #### V ITD, CMP, LIPD, CBCAD #### [facility] [address] [place], [place] [id number] Cholesterol in HDL [Mass/Vol] 57 mg/dL Normal >40 [facility] Blanket Winder Operator Comment on above: Result Comment: High Cardiovascular Risk HDL <40 mg/dL Low Cardiovascular Risk HDL > or equal to 60 mg/dl Performed By: #### V ITD, CMP, LIPD, CBCAD #### [facility] [address] [place], [place] [id number] Cholesterol in LDL [Mass/Vol] 171 mg/dL Normal [facility] Blanket Winder Operator Comment on above: Result Comment: LDL ATP III CLASSIFICATION LDL less than 100 mg/dl Optimal LDL 100-129 mg/dl Near or above optimal LDL 130-159 Borderline high LDL 160-189 High LDL greater than 189 mg/dl Very High Performed By: #### V ITD, CMP, LIPD, CBCAD #### [facility] [address] [place], [place] [id number] Cholesterol in VLDL [Mass/Vol] 25 mg/dL Normal [facility] Blanket Winder Operator Comment on above: Performed By: #### V ITD, CMP, LIPD, CBCAD #### [facility] [address] [place] [id number] Cholesterol.total/Ch olesterol in HDL [Mass ratio] 4 {ratio} Normal [facility] Comment on above: Performed By: #### V ITD, CMP, LIPD, CBCAD #### [facility] [address] [place], [place] [id number] Triglyceride [Mass/Vol] 127 mg/dL Normal 30-150 [facility] Specialist Comment on above: Result Comment: TRIG ATPIII CLASSIFICATIONS TRIG less than 150 mg/dl Normal TRIG 150-199 mg/dl Borderline High TRIG 200-500 mg/dl High TRIG greather than 500 mg/dl Very High Performed By: #### V ITD, CMP, LIPD, CBCAD #### [facility] [address] [place], [place] [id number] Q - CELIAC DISEASE COMP PANE Davis 05-04-2021 IMMUNOGLOBULIN A 133 mg/dL Normal 47-310 [facility] Specialist Comment on above: Order Comment: [facility] performed at: [facility], [address] [facility], [address] [place] [address], [phone], Aircraft Armament Mechanic: Alfie Hardin MD [facility] Date/Time: [facility] Results Received Date/Time: [facility] Reported Date/Time: Performed By: #### [id number] #### [facility] [address] [place] [address] INTERPRETATION SEE NOTE Normal [facility] Specialist Comment on above: Order Comment: [facility] performed at: [facility], [address] , [address] [place] [address], [phone], Aircraft Armament Mechanic: Alfie Hardin MD [facility] Date/Time: [facility] [...] 3 [id number] #### [facility] [address] [place] [address] TISSUE TRANSGLUTAMINASE AB, IGA <1.0 Normal [facility] Blanket Winder Operator Comment on above: Order Comment: [facility] performed at: [facility], [address], [address] [facility], [place], [address], Aircraft Armament Mechanic: Alfie Hardin MD [facility] Date/Time: [facility] Results Received Date/Time: [facility] Reported Date/Time: Result Comment: Valu e Interpretation ----- <15.0 Antibody not detected > or = 15.0 Antibody detected Performed By: #### 3 [id number] #### [facility] [address] [place] [address] Vitamin D 25-OHon 05-04-2021 VIT D 25 OH 22 ng/ml Low >29 [facility] Blanket Winder Operator Comment on above: Result Comment: Viviane min D Status Deficiency <20 ng/mL Insufficiency 20-29 ng/mL Optimal 30-100 ng/mL Possible Toxicity >=150 ng/mL Performed By: #### V ITD, CMP, LIPD, CBCAD #### [facility] [address] [place], [place] [id number] Encounters Encounter Date Encounter Type Care Provider Facility Start: 07-08-2023 End: 07-08-2023 ambulatory INOCENCIA AVITIA Not Available Start: 06-24-2023 End: 06-24-2023 ambulatory FRANCIE GOMEZ Not Available Start: 06-24-2023 End: 06-24-2023 ambulatory DELISA AICHHOLZ Not Available Start: 04-23-2023 End: 04-23-2023 ambulatory DELISA AICHHOLZ Not Available Start: 02-25-2023 End: 02-26-2023 ambulatory Kennedi Watt Facility[facility] Start: 05-30-2022 End: 05-30-2022 ambulatory SHAIKH Shayan SHEFFIELD Facility:[facility] Start: 09-03-2021 End: 09-03-2021 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 DELISA AICHHOLZ Facility:[facility] Payers Date Payer Category Payer Private Health Insurance [id number] 1990 Unknown [id number] 2.16.84 [id number] 1990 Unknown [id number] 2.16.84 [id number] 1991 Unknown [id number] 2.16.84 [id number] 1991 Unknown [id number] 2.16.84 [id number] 1991 Unknown [id number] 2.16.84 [id number] 1991 Unknown [id number] [id number] 1959 Unknown [id number] Summary Purpose Family History No Family History Records FoundNo Family History Records FoundNo Family History Records FoundNo Family History Records Found Advance Directives No Advanced Directives Records FoundNo Advanced Directives Records FoundNo Advanced Directives Records FoundNo Advanced Directives Records Found Additional Source Comments INFORMATION SOURCE (unrecogn ized section and content) DATE CREATED AUTHOR 05/11/2021 [facility] dical Specialist DATE CREATED AUTHOR AUTHOR'S ORGANIZ ATION 06/01/[address] [facility] DATE CREATED AUTHOR AUTHOR'S ORGANIZ ATION 04/04/2023 [facility] DATE CREATED AUTHOR AUTHOR'S ORGANIZ ATION 07/09/2023 [facility] dical Specialists [facility] FOR RECORDS PERTAINING TO PATIENTS WHO [...] BE BASED ON THE PRIMARY CLINICAL RECORDS. [facility] [employer] [facility]. provides no warranty or guarantee of the accuracy or completeness of information in this document.
[2023-08-21 10:59] LABS: Alanine Aminotransferase 27 U/L (14-59); Albumin Globulin Ratio 0.9; Albumin Level 3.5 g/dL (3.4-5.0); Alkaline Phosphatase 86 U/L (46-116); Anion Gap 15.1; Aspartate Amino Transferase 17 U/L (15-37); BUN Creatinine Ratio 17.3; Bilirubin Total 0.5 mg/dL (0.2-1.0); Carbon Dioxide 25.1 mmol/L (21.0-32.0); Chloride 104 mmol/L (98-107); Chol HDL Ratio 4.2; Cholesterol 198 mg/dL (<=200); Estimated GFR (African America >60 (>=60); Estimated GFR (Non-African Ame >60 (>=60); Globulin 3.7 g/dL; Glucose 87 mg/dL (74-106); HDL Cholesterol 47 mg/dL (40-60); Potassium 4.2 mmol/L (3.5-5.1); Sodium 140 mmol/L (136-145); Total Protein 7.2 g/dL (6.4-8.2); Triglycerides 164 mg/dL (<=150); VLDL CHOLESTEROL 32.8 mg/dL
[2023-08-22 09:10] LABS: Insulin 29.6 uIU/mL (2.6-24.9)
== END 2023-08-21 10:05 | disposition home or self-care (01) ==
LOC: LAB 10:05
PROVIDERS: PCP Nurse Practitioner; Visit Provider Nurse Practitioner
DX: E16.1 Other hypoglycemia (principal); E78.2 Mixed hyperlipidemia; E55.9 Vitamin D deficiency, unspecified
CPT/HCPCS: 36415; 80053; 80061; 82306; 83525